=== PATIENT | female | born 1940 | race Caucasian/White ===

== ENCOUNTER 2018-04-24 16:25 | Inpatient (IN) | payer MEDICARE, OTHER ==
[~2018-04-24] VITALS: Ht 162.6 cm; Wt 71.3 kg
[~2018-04-24 16:25] MED LIST: BUME2 PO; CALCAVITD; CENTRUM SILVER1 EAC2; CYAN100; DIPATR; LATA.005SO; LEVO750 PO; LORA.5 PO; Maxalt5 MG; Micro-K10 MEQ; NAPR220; OMEP20ER; SUMA25; TIMDOROPSO
[2018-04-24 16:54] LABS: BASOPHILS ABSOLUTE AUTO 0.03 K/mm3 (0.00-0.23); BASOPHILS PERCENT AUTO 0 % (0-2); EOSINOPHILS ABSOLUTE AUTO 0.01 K/mm3 (0.00-0.68); EOSINOPHILS PERCENT AUTO 0 % (0-6); Hematocrit 50.3 % (33.0-51.0); IMMATURE GRAN ABSOLUTE AUTO 0.17 K/mm3 (0.00-0.10); IMMATURE GRAN PERCENT AUTO 1 % (0-1); LYMPHOCYTES ABSOLUTE AUTO 1.13 K/mm3 (0.84-5.20); LYMPHOCYTES PERCENT AUTO 7 % (21-46); MONOCYTES ABSOLUTE AUTO 0.82 K/mm3 (0.16-1.47); MONOCYTES PERCENT AUTO 5 % (4-13); Mean Corpuscular HGB 30.7 pg (26.0-34.0); Mean Corpuscular HGB Conc 33.8 g/dL (31.5-36.5); Mean Corpuscular Volume 91 fL (80-100); Mean Platelet Volume 11.7 fL (9.1-12.4); NEUTROPHILS PERCENT AUTO 86 % (41-73); Platelet Count 272 K/mm3 (150-400); RDW Coefficient Variation 14.6 % (11.7-14.2); RDW Standard Deviation 48.2 fL (35.1-46.3); Red Blood Cell Count 5.53 M/mm3 (3.80-5.20); White Blood Cell Count 15.26 K/mm3 (4.00-11.30)
[2018-04-24] MEDS ORDERED: BUME2 (17:07)
[2018-04-24] MEDS ORDERED: VIBERZI75 MG (17:07)
[2018-04-24] MEDS ORDERED: CETI5 (17:07)
[2018-04-24] MEDS ORDERED: COSOPT PF EYE1 EACH ×2 (17:07→19:04)
[2018-04-24] MEDS ORDERED: Travatan Z5 ML (17:07)
[2018-04-24] MEDS ORDERED: PANT40 (17:08)
[2018-04-24] MEDS ORDERED: ESCI5 (17:08)
[2018-04-24] MEDS ORDERED: SUMA25 (17:08)
[2018-04-24] MEDS ORDERED: CLOP75 (17:08)
[2018-04-24] MEDS ORDERED: Excedrin Extra1 EACH (17:08)
[2018-04-24] MEDS ORDERED: RIZATRIPTAN10 M1 (17:09)
[2018-04-24] MEDS ORDERED: ONDA4ODT (17:09)
[2018-04-24 17:22] LABS: Albumin, Blood 3.7 g/dL (3.4-5.0); Bilirubin, Total 0.9 mg/dL (0.1-1.0); Bun/Creatinine Ratio 34.7 (12.0-20.0); Calcium, Blood 10.3 mg/dL (8.5-10.1); Creatinine, Blood 1.7 mg/dL (0.40-1.00); Globulin, Blood 3.8 g/dL (2.2-4.0); Magnesium, Blood 2.4 mg/dL (1.6-2.4); Potassium, Blood 3.7 mmol/L (3.5-5.5); Total Protein, Blood 7.5 g/dL (6.4-8.2)
[2018-04-24 17:29] LABS: Troponin I 1.08 ng/mL (0.000-0.040)
[2018-04-24] MEDS ORDERED: LISI20 (19:04)
[2018-04-25 00:44] LABS: Hematocrit 51.1 % (33.0-51.0); Hemoglobin 17.2 g/dL (11.5-16.0); Mean Corpuscular HGB 30.4 pg (26.0-34.0); Mean Corpuscular HGB Conc 33.7 g/dL (31.5-36.5); Mean Corpuscular Volume 90 fL (80-100); Mean Platelet Volume 11.7 fL (9.1-12.4); Platelet Count 254 K/mm3 (150-400); RDW Coefficient Variation 14.5 % (11.7-14.2); RDW Standard Deviation 46.9 fL (35.1-46.3); Red Blood Cell Count 5.66 M/mm3 (3.80-5.20); White Blood Cell Count 17.39 K/mm3 (4.00-11.30)
[2018-04-25 01:02] LABS: Bun/Creatinine Ratio 39.9 (12.0-20.0); Calcium, Blood 10.1 mg/dL (8.5-10.1); Creatinine, Blood 1.43 mg/dL (0.40-1.00); Potassium, Blood 3.8 mmol/L (3.5-5.5)
[2018-04-25 01:08] LABS: Creatine Kinase MB 14.3 ng/mL (0.0-3.6); Creatine Kinase MB Index 2.8 (0.0-4.0)
[2018-04-25 01:22] LABS: Troponin I 0.745 ng/mL (0.000-0.040)
[2018-04-25 09:32] LABS: Creatine Kinase MB 13.2 ng/mL (0.0-3.6); Creatine Kinase MB Index 2.9 (0.0-4.0)
[2018-04-25 09:52] LABS: Troponin I 0.554 ng/mL (0.000-0.040)
[2018-04-25 11:14] LABS: LDL/HDL RATIO 1.9
[2018-04-25 11:15] LABS: CHOL/HDL RATIO 3.7; Cholesterol 159 mg/dL (50-200); HDL Cholesterol 43 mg/dL (>39); Low Density Lipoprotein Chol 81 mg/dL (0-110); Triglycerides 173 mg/dL (30-160); Very Low Density Lipoprot Chol 34 mg/dL (6-32)
[2018-04-26 04:20] LABS: Hemoglobin 14.9 g/dL (11.5-16.0); Mean Corpuscular HGB Conc 33.1 g/dL (31.5-36.5); Mean Corpuscular Volume 91 fL (80-100); Mean Platelet Volume 11.8 fL (9.1-12.4); Platelet Count 187 K/mm3 (150-400); RDW Coefficient Variation 14.6 % (11.7-14.2); RDW Standard Deviation 47.7 fL (35.1-46.3); Red Blood Cell Count 4.97 M/mm3 (3.80-5.20); White Blood Cell Count 12.91 K/mm3 (4.00-11.30)
[2018-04-26 04:45] LABS: Albumin, Blood 3.2 g/dL (3.4-5.0); Anion Gap 9 mmol/L (6-16); Blood Urea Nitrogen 41 mg/dL (8-24); Bun/Creatinine Ratio 36.3 (12.0-20.0); CO2, Blood 25 mmol/L (21-32); Calcium, Blood 8.6 mg/dL (8.5-10.1); Chloride, Blood 113 mmol/L (98-108); Creatinine, Blood 1.13 mg/dL (0.40-1.00); Glomerular Filtration Rate 50 (60-); Glucose, Blood 171 mg/dL (70-99); Phosphorus, Blood 1.9 mg/dL (2.5-4.9); Potassium, Blood 3.6 mmol/L (3.5-5.5); Sodium, Blood 147 mmol/L (136-145)
[2018-04-27 05:25] LABS: Albumin, Blood 2.7 g/dL (3.4-5.0); Anion Gap 11 mmol/L (6-16); Blood Urea Nitrogen 26 mg/dL (8-24); Bun/Creatinine Ratio 30.3 (12.0-20.0); CO2, Blood 22 mmol/L (21-32); Calcium, Blood 8.4 mg/dL (8.5-10.1); Chloride, Blood 112 mmol/L (98-108); Creatinine, Blood 0.86 mg/dL (0.40-1.00); Glomerular Filtration Rate >60 (60-); Glucose, Blood 96 mg/dL (70-99); Potassium, Blood 3.4 mmol/L (3.5-5.5); Sodium, Blood 145 mmol/L (136-145)
[2018-04-27 05:36] LABS: Hematocrit 43.5 % (33.0-51.0); Hemoglobin 14.7 g/dL (11.5-16.0); Mean Corpuscular HGB 30.2 pg (26.0-34.0); Mean Corpuscular HGB Conc 33.8 g/dL (31.5-36.5); Mean Corpuscular Volume 90 fL (80-100); Mean Platelet Volume 12.3 fL (9.1-12.4); Platelet Count 134 K/mm3 (150-400); RDW Coefficient Variation 14.3 % (11.7-14.2); RDW Standard Deviation 45.6 fL (35.1-46.3); Red Blood Cell Count 4.86 M/mm3 (3.80-5.20); White Blood Cell Count 10.32 K/mm3 (4.00-11.30)
== END 2018-05-04 06:30 | DRG 64 ==
LOC: ER 16:25 → ERHOLD 19:18 → PCU 19:18 → MEDS 04-26 22:15 → ENPENDDIS 05-04 10:02
PROVIDERS: Emergency Medicine; Internal Medicine
DX: I63.9 Cerebral infarction, unspecified (principal); G92 Toxic encephalopathy; I21.A1 Myocardial infarction type 2; N17.9 Acute kidney failure, unspecified; E87.1 Hypo-osmolality and hyponatremia; R65.10 Systemic inflammatory response syndrome (SIRS) of non-infectious origin without acute organ dysfunction; Z51.5 Encounter for palliative care; E86.0 Dehydration; I48.91 Unspecified atrial fibrillation; I12.9 Hypertensive chronic kidney disease with stage 1 through stage 4 chronic kidney disease, or unspecified chronic kidney disease; N18.9 Chronic kidney disease, unspecified; F41.8 Other specified anxiety disorders; J44.9 Chronic obstructive pulmonary disease, unspecified; G43.909 Migraine, unspecified, not intractable, without status migrainosus; R62.7 Adult failure to thrive; F01.50 Vascular dementia, unspecified severity, without behavioral disturbance, psychotic disturbance, mood disturbance, and anxiety
CPT/HCPCS: 36415; 51702; 51798; 70450; 71045; 80048; 80053; 80061; 80069; 82550; 82553; 82947; 83036; 83735; 84484; 85025; 85027; 92610; 93005; 93010; 93308; 93321; 93880; 96365; 96366; 96372; 97162; 97166; 97530; 99285; G8978; G8979; G8987; G8988; G8996; G8997; J0696; J1650; J7030; J7040; J7070